=== PATIENT | male | born 1960 | race Caucasian/White ===

== ENCOUNTER 2025-04-10 06:05 | Day surgery (SDC) | payer OTHER, SELFPAY ==
--- NOTE | 2025-04-03 16:10 | P.HP_ITS ---
History of Present Illness *Admission Date: 04/10/25 *History of present illness: Mr. Magana is a 64-year-old gentleman who is here for screening/surveillance colonoscopy. The patient does have a personal history of adenomatous colon polyps and a family history of colon cancer. His father had rectal cancer in h is mid 60s and his paternal grandmother had colon cancer in her 90s. The patient had a colonoscopy in August 2001 and had 4 polyps (tubular adenomas x 3/hyperplastic polyp x 1) removed. His colonoscopy in May 2007 revealed 3 polyps (tubular adenoma x 1/hyperplastic polyps x 2) which were removed. His colonoscopy in February 2014 revealed 4 diminutive polyps (tubular adenomas x 4) which were removed. His last colonoscopy with me in May 2019 revealed 10 polyps (tubular adenomas x 9/hyperplastic polyp x 1) which were removed. The examination is deemed medically necessary for screening/surveillance colonoscopy. The patient has been seen, interviewed and examined prior to the procedure by both myself and the anesthesia provider. [facility] Disclaimer: The information contained in this section may have been updated after the patient was seen, as this information can be updated by other users. Surgical History Hx of arthroscopic knee surgery Family History Father Colon cancer Social History (Updated 04/10/25 @ 06:32 by Jennifer Stein RN) Smoking Status: Never smoker alcohol intake: never substance use type: denies use current occupational status: employed Travel in the last 8 weeks?: None household members: spouse caffeine: Yes Have you lived/traveled outside [place] in past 30 days?: No Contact w/someone who lives/traveled outside US past 30 days?: No Exposure to someone with infectious disease in past 14 days?: No Do you have a fever (greater than 100.4 F or 38 C)?: No Have you tested positive for COVID-19?: No Exposed to someone with COVID-19 in past 14 days?: No Do you have a sore throat?: No Do you have a cough?: No Do you have any weakness?: No Are you experiencing any nausea/vomitting?: No Do you have any diarrhea?: No Are you experiencing any unusual bleeding?: No Do you have any muscle aches/pain?: No Do you have any abdominal pain?: No Are you experiencing loss of taste or smell?: No Other Medical History Have you received the Flu Vaccine for this season: Yes Have you received the Pneumonia Vaccine: No Review of Systems Review of Systems Review of systems (narrative): Negative *Cardiovascular Comments: Negative *Gastrointestinal Comments: Negative *Genitourinary Comments: Negative *Musculoskeletal Comments: Negative *Neurologic Comments: Negative Meds Home Medications and Allergies Home Medications ?Medication ?Instructions ?Recorded ?Confirmed ?Type amlodipine 10 mg tablet 10 mg PO DAILY High blood pr essure 06/08/19 04/10/25 History hydrochlorothiazide 25 mg tablet 25 mg PO DAILY High b lood pressure 06/08/19 04/10/25 History losartan 100 mg tablet 100 mg PO DAILY High cholest jasbir 06/08/19 04/10/25 History metoprolol tartrate 100 mg tablet 100 mg PO BID High b lood pressure 06/08/19 04/10/25 History sodium,potassium,mag sulfates 17.5 See Rx Instructions PO .COMPLEX 03/28/25 04/10/25 Rx gram-3.13 gram-1.6 gram oral soln #354 mL (Suprep Bowel Prep Kit) New Prescriptions to Start Prescriptions: Allergies Allergy/AdvReac Type Severity Reaction Status Date / Time Sulfa (Sulfonamide Allergy Severe Hives Verified 04/10/25 06:38 Antibiotics) Exam *Routine HEENT Exam Head: Present normocephalic Eye: Present EOMI and PERRL ENT: Present mucous membranes moist *Routine Neck Exam Neck: Present supple *Routine Respiratory Exam Respiratory: Present CTA bilaterally *Routine Cardiovascular Exam Cardiovascular: Present RRR *Routine Abdominal Exam Abdominal: Present soft and normoactive bowel sounds; Absent tenderness *Routine Rectal Exam Rectal:: deferred *Routine Genitalia Exam Genitalia:: deferred *Routine Extremities Exam Extremities: Absent cyanosis, clubbing or edema *Routine Skin Exam Skin: Present warm; Absent rash *Routine Neurological Exam Neurological: Present alert and oriented X3 Assessment and Plan *Assessment and plan (1) Personal history of adenomatous and serrated colon polyps: Status: Acute Category: Medical Code(s): Z86.0101 - Personal history of adenomatous and serrated colon polyps (2) Family history of colon cancer in father: Status: Acute Category: Medical Code(s): Z80.0 - Family history of malignant neoplasm of digestive organs Plan A/P: 1. Personal history of adenomatous colon polyps and family history of colon cancer is the preprocedural diagnosis. The patient will be anesthetized/sedated using MAC sedation. The patient has been seen and examined. Cardiac and lung assessment prior to the examination is stable. Proceed with planned screening/surveillance colonoscopy.
[2025-04-10 06:28] VITALS: BP 134/80; PULSE 59; RESP 16; TEMP 36.1; O2SAT 96; BMI 31.8
[2025-04-10] MEDS: LACTATED RINGERS 1000ML 1,000 ML 50 ML IV (06:42)
--- NOTE | 2025-04-10 06:53 | HMH.PROCNOTE ---
[facility] Procedure Note Date: 04/10/25 Time: 07:59 Procedure Note:: Colonoscopy Procedure Report: Colonoscopy with cold snare polypectomy and snare cautery Endoscopist: Fawad Head II, MD Referring physician: Jose Macdonald MD [address] [place] [address] , [place] [address] Date of Procedure: April 10, 2025 Equipment: Olympus [id number] adult colonoscope Sedation: MAC sedation Indication: Mr. Magana is a 64-year-old gentleman who is here for screening/surveillance colonoscopy. The patient does have a personal history of adenomatous colon polyps and a family history of colon cancer. His father had rectal cancer in his mid 60s and his paternal grandmother had colon cancer in her 90s. The patient had a colonoscopy in August 2001 and had 4 polyps (tubular adenomas x 3/hyperplastic polyp x 1) removed. His colonoscopy in May 2007 revealed 3 polyps (tubular adenoma x 1/hyperplastic polyps x 2) which were removed. His colonoscopy in February 2014 revealed 4 diminutive polyps (tubular adenomas x 4) which were removed. His last colonoscopy with me in May 2019 revealed 10 polyps (tubular adenomas x 9/hyperplastic polyp x 1) which were removed. The patient reports no abdominal pain, weight loss or change in his bowel habits. His bowel function is well-regulated with a fiber bowel regimen (combined MiraLAX plus Metamucil every morning). He does get some infrequent hemorrhoidal bleeding and hemorrhoid prolapse. The examination is deemed medically necessary for screening/surveillance colonoscopy. Procedure: Prior to the procedure, a history and physical exam was performed, and patient's medications and allergies were reviewed. The risks, benefits and alternatives of the sedation and procedure were discussed with the patient. All questions were answered and informed consent was obtained. The patient was brought to the procedure room. Patient identification and proposed procedure were verified by the physician and the nurse. The patient was placed in a left lateral decubitus position and the scope was passed under direct vision. Throughout the procedure, the patient's blood pressure, pulse, and oxygen saturations were monitored continuously. The colonoscopy was accomplished without difficulty. The patient tolerated the procedure well. Findings: On digital rectal examination there was normal rectal tone. There were no external hemorrhoids. The prostate was 2+, smooth, soft, symmetric without nodules. The colonoscope was introduced through the anal canal to the rectum and advanced to the cecum. The ileocecal valve and appendiceal orifice were identified. The scope was advanced a short distance into the ileum which appeared grossly normal. The scope was then withdrawn into the colon. There were 7 colon polyps (ascending x 4 (3, 4, 9 and 14 mm) and transverse x 3 (3, 4 and 5 mm)). The largest 14 mm polyp was removed via snare cautery and was pedunculated. The remainder of the diminutive polyps were removed via cold snare polypectomy. There were a few shallow diverticuli in the sigmoid colon. There were no other mucosal abnormalities identified. Upon retroflexion within the rectum there were grade 2 internal hemorrhoids. The preparation was excellent throughout with [place] Preparation Score of 9. The cecal time was 12 minutes. Impression: 1. Colonic polyps x 7 (ranging in size from 3 to 14 mm) 2. Mild left-sided diverticulosis 3. Grade 2 internal hemorrhoids Plan: I will follow-up the polyp histology and recommend repeat screening/surveillance colonoscopy again in 3 years. I would encourage continuation of the fiber bowel regimen (combined MiraLAX plus Metamucil) on a maintenance basis.
--- NOTE | 2025-04-10 07:00 | P.PNANES_ITS ---
[facility] Disclaimer: The information contained in this section may have been updated after the patient was seen, as this information can be updated by other users. Surgical History Hx of arthroscopic knee surgery Family History Father Colon cancer Social History (Updated 04/10/25 @ 06:32 by Jennifer Stein RN) Smoking Status: Never smoker alcohol intake: never substance use type: denies use current occupational status: employed Travel in the last 8 weeks?: None household members: spouse caffeine: Yes Have you lived/traveled outside [place] in past 30 days?: No Contact w/someone who lives/traveled outside US past 30 days?: No Exposure to someone with infectious disease in past 14 days?: No Do you have a fever (greater than 100.4 F or 38 C)?: No Have you tested positive for COVID-19?: No Exposed to someone with COVID-19 in past 14 days?: No Do you have a sore throat?: No Do you have a cough?: No Do you have any weakness?: No Are you experiencing any nausea/vomitting?: No Do you have any diarrhea?: No Are you experiencing any unusual bleeding?: No Do you have any muscle aches/pain?: No Do you have any abdominal pain?: No Are you experiencing loss of taste or smell?: No [facility] Anesthesia Checklist Patient Identification Patient Identification: Arm Band Structural Data Admitted From: Home Planned Operative Procedure/s: Colonoscopy Consent for Planned Operative Procedure(s) Verified: Yes Verified Documents: Surgical Consent and History and Physical NPO Status Verified Time NPO: 03:00 (finished prep) Additional verifications Anesthesia Reactions: No Airway Assessment Mallampati Score:: Class II C-Spine Mobility Assessed: Yes TMJ Mobility Assessed: Yes Dentition: Edentulous Neurological Assessment Level of Consciousness: Awake, Alert and Appropriate Anesthesia Plan Anesthesia Risk discussed: Yes Anesthesia Plan: Verified ASA Class: II Anesthesia Type: MAC
[2025-04-10 08:01] VITALS: BP 81/44; PULSE 16; RESP 16; TEMP 36.1; O2SAT 93
[2025-04-10 08:11] VITALS: BP 108/47; PULSE 45; RESP 16; TEMP 36.1; O2SAT 95
[2025-04-10 08:21] VITALS: BP 102/59; PULSE 46; RESP 18; TEMP 36.1; O2SAT 95
[2025-04-10 08:31] VITALS: BP 126/80; PULSE 59; RESP 16; TEMP 36.1; O2SAT 98
== END 2025-04-10 08:31 | disposition home or self-care (01) ==
PROVIDERS: PCP Emergency Medicine; Visit Provider Internal Medicine Gastroenterology
PROC: 0DJD8ZZ Inspection of Lower Intestinal Tract, Via Natural or Artificial Opening Endoscopic (ICD-10-PCS; CPT 45378; principal; 2025-04-10 07:30)
DX: Z12.11 Encounter for screening for malignant neoplasm of colon (principal); D12.2 Benign neoplasm of ascending colon; D12.3 Benign neoplasm of transverse colon; K57.30 Diverticulosis of large intestine without perforation or abscess without bleeding; K64.1 Second degree hemorrhoids; Z80.0 Family history of malignant neoplasm of digestive organs; Z86.0101 Personal history of adenomatous and serrated colon polyps; Z79.899 Other long term (current) drug therapy; Z88.2 Allergy status to sulfonamides
CPT/HCPCS: 45385; J2003; J2704; J7120